=== PATIENT | male | born 1955 | race African-American/Black ===

== ENCOUNTER 2024-11-15 10:30 | Outpatient (AMB) | payer OTHER, SELFPAY ==
--- NOTE | 2024-11-15 10:37 | A.OFFVIS_ITS ---
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 On 1 hand he was doing okay and was working on the form but on the other hand he was getting more forgetful and confused. Sometime he was aggressive. He could lose things easily. While driving, he felt okay. His was concerned that he might not be able to pass citizenship exam. [facility] Medical History (Updated 11/15/24 @ 10:49 by Carmen Powell MD) Alzheimer disease Review of Systems Const Details: Forgetful, sometimes confused and aggressive. Lately ok. Physical Exam Neuro Other: Mental Status: Alert and oriented to person, place, and time. Normal attention. Normal spontaneous speech, fluency, and comprehension. Cranial Nerves: CN II: Visual patel full to confrontation, visual acuity intact. CN III, IV, : Pupils equal, round, reactive to light and accommodation. Extraocular movements are normal. CN V: Facial sensation is normal. CN VII: Facial movements symmetrical. CN VIII: Hearing intact to bedside conversation is normal. CN IX, X: Palate elevates symmetrically. CN XI: Shoulder shrug and head turn symmetrical. CN XII: Tongue midline without atrophy or fasciculations. Extrapyramidal: Full facial expressions and blinking. No rigidity. Movements are appropriate with no tremor or abnormality. Speech: Normal; no dysarthria or tremor. Assessment & Plan Assessment & Plan (1) Alzheimer dementia: Comment: MRI brain WO at [facility] in October 2023: Mild MVD, minimal atrophy. Code(s): G30.9 - Alzheimer's disease, unspecified; F02.80 - Dementia in other diseases classified elsewhere, unspecified severity, without behavioral disturbance, psychotic disturbance, mood disturbance, and anxiety Category: Medical Qualifiers: Alzheimer's disease onset: late onset Dementia severity: mild Dementia behavioral or psychological symptom: with other behavioral disturbance Qualified Code(s): G30.1 - Alzheimer's disease with late onset; F02.A18 - Dementia in other diseases classified elsewhere, mild, with other behavioral disturbance Plan Impression: Mild to moderate Alzheimer dementia with behaioral symptoms Rec: a: Continue to work at farm. This kind of work can help. b: Donepezil 10mg a day c: Sertraline 25mg one a day d: Quetiapine 25mg one a day as needed for aggression e: Memantine 5mg bid Medications: New donepezil 10 mg PO BEDTIME 90 tabs 0RF sertraline 25 mg PO DAILY 90 tabs 0RF quetiapine 25 mg PO BEDTIME PRN 90 tabs 0RF withdrawal symptoms memantine (Namenda) 5 mg PO BID 180 tabs 0RF donepezil 10 mg PO BEDTIME 90 tabs 0RF memantine (Namenda) 5 mg PO BID 180 tabs 0RF quetiapine 25 mg PO BEDTIME PRN 90 tabs 0RF withdrawal symptoms sertraline 25 mg PO DAILY 90 tabs 0RF Coding Level of Care Code Est Pt Level 4 (38740) Diagnoses Mild late onset Alzheimer's dementia with other behavioral disturbance G30.1; F02.A18 Alzheimer's disease onset: late onset Dementia severity: mild Dementia behavioral or psychological symptom: with other behavioral disturbance
--- OUTSIDE RECORDS SUMMARY | 2024-11-15 11:12 | XMS_ITS | Encounter Summary ---
Author Organization [employer] Address [address] [place] [address] Care Team Providers Care Broach Setter Name Role Phone Ignacio Santos Primary Care Provider [phone] Joey Swanson Unavailable [phone] Encounter Details Date Type Department Care Team ([facility] st Contact Info) Description 10/11/[address] [place] [phone] Ignacio Santso PA [address] [place] [id number] Social History Tobacco Use Types Packs/Day Years Used Date Smoking Tobacco: Never Smokeless Tobacco: Never Alcohol Answer Date Recorded How often do you have a drink containing alcohol ? 0 05/24/2023 How many drinks containing a lcohol do you have on a typical day when you are drinking? 0 05/24/2023 How often do you have six or more drinks on one occasion? 0 05/24/2023 Depression Answer Date Recorded Patient Health Questionnaire-9 Score 2 03/18/2023 Patient Health Questionnaire-9 Score 2 03/18/2023 Last PHQ-9: Questionnaire Data Not on file 1 05/19/2022 Housing Stability Answer Date Recorded What is your housing situation today? I have analy stein 03/18/[address] you li ve. Do you have problems with any of the following? None of the above 03/18/2023 Food Insecurity Answer Date Recorded Within the past 12 months, y ou worried that your food would run out before you got money to buy more: Never True 03/18/2023 Within the past 12 months,th e food you bought just didn't last and you didn't have enough money to get more: Never True 10/2022 Transportation Answer Date Recorded In the past 12 months, has l ack of transportation kept you from medical appts, meetings, work or from getting things needed for daily living? No 03/18/2023 Intimate Partner Violence Answer Date R ecorded Within the last year, have y ou been afraid of your partner or ex-partner? 2 05/24/2023 Within the last year, have y ou been humiliated or emotionally abused in other ways by your partner or ex-partner? 2 Within the last year, have y ou been kicked, hit, slapped, or otherwise physically hurt by your partner or ex-partner? 2 05/24/2023 Within the last year, have y ou been raped or forced to have any kind of sexual activity by your partner or ex-partner? 2 05/24/2023 Utilities Answer Date Recorded In the past 12 months, has t he [employer], gas, oil or water company threatened to shut off services in your home? No 03/18/2023 Depression Answer Date Recorded Patient Health Questionnaire-2 Score 0 03/18/2023 Sex and Gender Information Value Date Recorded Sex Assigned at Male 04/10/2022 2:45 PM EST Legal Sex Male 8:38 PM EST Gender Identity Choose not to disclose 2:45 PM EST Sexual Orientation Straight 04/10/2022 2: 45 PM EST documented as of this encounter Miscellaneous Notes * Telephone Encounter - Ashley Maciel - 10/20/2023 2:39 PM EDT Spoke to Roixe at [employer], let her know that [employer] is having an issues and wasn't able to pull an with for this patient and had advised I call the health insurance directly. [employer] is doing the Authorization and that is still pending. Gave them the Case number and said as soon as I get if it was approved or not I will let them know. * Telephone Encounter - Tricia Stephenson - 10/20/2023 1:59 PM EDT EXT [id number] [employer] is the company that this should be submitted to on behalf of the insurance companyfor the prior auth. Their site shows nothing so he just wanted to be certain it has been submitted.their phone # [phone] This is in regards to the brain mri prior authorization request * Telephone Encounter - Ashley Maciel - 10/19/2023 1:57 PM EDT Auth Submitted to [employer] to [phone] Case#[id number] Valid 10/19/23-11/16/24 Auth Pending * Telephone Encounter - Mali Long - 10/15/2023 2:01 PM EDT Shai from [facility] states they Need a Prior auth for the Brain MRI. Shai States they have reached out to the care team a few times and if they dont hear back, they will have to cancel the MRI. * Telephone Encounter - Kimberly Pascual - 10/13/2023 1:00 PM EDT Provider informs the patient needs the order for a brain MRI without contrast. Their NPI is [id number] and their fax is [phone]. They said they had received the order we sent before but the patient's insurance has updated so they will need us to resend it Saying patient needs prior auth * Telephone Encounter - Seymour Hwang - 10/11/2023 12:09 PM EDT Provider informs the patient needs the order for a brain MRI without contrast. Their NPI is [id number] and their fax is [phone]. They said they had received the order we sent before but the patient's insurance has updated so they will need us to resend it documented in this encounter Plan of Treatment Not on file documented as of this encounter Visit Diagnoses Not on filedocumented in this encounter Additional Health Concerns Assessment Noted Time PHQ-9 Depression Total Score: 2 03/18/20 23 2:52 PM EST documented as of this encounter Care Teams Broach Setter Relationship Specialty Start Date End Date Ignacio Santos PA [address] [place] [id number] PCP - General Family Medicine 04/10/22 Joey Swanson LLD [address] [place] [phone] Dentist Dentist 04/10/22 documented as of this encounter
== END 2024-11-15 10:57 | disposition home or self-care (01) ==
LOC: HO.HSM 10:31
PROVIDERS: PCP Physician Assistant Medical; Referring Provider Physician Assistant Medical; Visit Provider Psychiatry & Neurology Neurology
DX: G30.1 Alzheimer's disease with late onset (principal); F02.A18 Dementia in other diseases classified elsewhere, mild, with other behavioral disturbance
CPT/HCPCS: 99214

== ENCOUNTER 2025-02-20 12:40 | Outpatient (AMB) | payer OTHER, SELFPAY ==
--- NOTE | 2025-02-20 12:45 | MHC.OFFVIS ---
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 He is presenting with cognitive decline management related to Alzheimer's Disease. Over recent times, a notable increase in stubbornness and memory-related issues has been observed, complicating daily routines and tasks. Caregiver reports indicate recurring problems with following routines and misplacing objects, such as keys, impacting the patient's compliance and independence. Current treatment involves memantine 5 mg administered twice daily, but due to persistent cognitive and behavioral symptoms, an evaluation and necessary adjustment of the treatment plan are warranted. The patient, although sometimes compliant with organizational strategies, often resists following set routines fully, illustrating the need for further intervention. There are no mentioned adverse reactions to the current medication regimen, enabling safe adjustments advised during the consultation. Additionally, despite the cognitive impediments, the patient remains engaged in work-related activities, underlining the significance of preserving cognitive function and closely monitoring treatment efficacy. [facility] Medical History (Updated 11/15/24 @ 10:49 by Carmen Powell MD) Alzheimer disease Review of Systems Narrative - Neurological: Reports increasing stubbornness and issues with memory and organization, such as misplacing items. - Cognitive: Reports decline in cognitive function, but continues to manage work responsibilities. Physical Exam Neuro Other: Mental Status: Alert and oriented to person, place, and time. Normal attention. Normal spontaneous speech, fluency, and comprehension. Cranial Nerves: CN II: Visual patel full to confrontation, visual acuity intact. CN III, IV, : Pupils equal, round, reactive to light and accommodation. Extraocular movements are normal. CN V: Facial sensation is normal. CN VII: Facial movements symmetrical. CN VIII: Hearing intact to bedside conversation is normal. CN IX, X: Palate elevates symmetrically. CN XI: Shoulder shrug and head turn symmetrical. CN XII: Tongue midline without atrophy or fasciculations. Extrapyramidal: Full facial expressions and blinking. No rigidity. Movements are appropriate with no tremor or abnormality. Speech: Normal; no dysarthria or tremor. Assessment & Plan Assessment & Plan (1) Alzheimer dementia: Comment: MRI brain WO at [facility] in October 2023: Mild MVD, minimal atrophy. Code(s): G30.9 - Alzheimer's disease, unspecified; F02.80 - Dementia in other diseases classified elsewhere, unspecified severity, without behavioral disturbance, psychotic disturbance, mood disturbance, and anxiety Category: Medical Qualifiers: Alzheimer's disease onset: late onset Dementia severity: mild Dementia behavioral or psychological symptom: with other behavioral disturbance Qualified Code(s): G30.1 - Alzheimer's disease with late onset; F02.A18 - Dementia in other diseases classified elsewhere, mild, with other behavioral disturbance Plan Impression: Mild to moderate Alzheimer type dementia with behavioral symptoms Rec: a: Donepezil 10mg one a day b: Memantine 10mg bid c: Sertraline 25mg one in am d: Quetiapine 25mg one at bedtime Medications: New memantine (Namenda) 10 mg PO BID 180 tabs 1RF Refilled donepezil 10 mg PO BEDTIME 90 tabs 1RF quetiapine 25 mg PO BEDTIME PRN 90 tabs 1RF withdrawal symptoms sertraline 25 mg PO DAILY 90 tabs 1RF Discontinued memantine (Namenda) Discontinued Reason: Doctor's Order 5 mg PO BID 180 tabs 0RF Coding Level of Care Code Est Pt Level 4 (84081) Global (56417) Diagnoses Mild late onset Alzheimer's dementia with other behavioral disturbance G30.1; F02.A18 Alzheimer's disease onset: late onset Dementia severity: mild Dementia behavioral or psychological symptom: with other behavioral disturbance Time Spent (min) 45 Comment Additional time spent in counseling and his work-related paperwork
--- OUTSIDE RECORDS SUMMARY | 2025-02-20 14:27 | XMS_ITS | Encounter Summary ---
Author Organization [employer] Address [address] [facility] [address] [place] [address] Care Team Providers Care Traffic Supervisor Name Role Phone Ignacio Santos Primary Care Provider [phone] Joey Swanson DMD Unavailable Unavailable Encounter Details Date Type Department Care Team ([facility] st Contact Info) Description 06/29/[address] [phone] Ignacio Santos PA [address] [place], [place] [phone] Social History Tobacco Use Types Packs/Day Years [...] the past 12 months, has t he electric, gas, oil or water company threatened to [...] encounter Miscellaneous Notes * Telephone Encounter - Tricia Stephenson - 06/29/2023 9:20 AM EDT Please call with lab results. You may call Meseret's # as he is having telephone issues. She is on the meenakshi. Please call documented in this encounter Plan of Treatment Upcoming Encounters Date Type Department Care Team (Late st Contact Info) Description 05/03/2025 8:00 AM EST Office Visit [address] [phone] Ignacio Santos PA [address] [place] [phone] documented as of this encounter Visit Diagnoses Not on filedocumented in this encounter Additional Health Concerns Assessment Noted Time PHQ-9 Depression Total Score: 2 03/18/20 23 2:52 PM EST documented as of this encounter Care Teams Traffic Supervisor Relationship Specialty Start Date End Date Ignacio Santos PA [address] [place] [address] PCP - General Family Medicine 04/10/22 Joey Swanson DMD [address] [place] [address] Dentist Dentist 04/10/22 documented as of this encounter
--- OUTSIDE RECORDS SUMMARY | 2025-02-20 14:27 | XMS_ITS | Clinical Summary ---
Author Organization [employer] Address [address] [facility] 7t [place] [address] Care Team Providers Care Glass Cleaning Machine Tender Name Role Phone Ignacio Santos Primary Care Provider [phone] Joey Swanson DMD Unavailable Unavailable Allergies No known active allergies Medications fluticasone (Flonase) 50 MCG/ACT nasal spray Fluticasone Propionate 50 MCG/ACT Nasal Suspension QTY: 3 each Days: 90 Refills: 0 Written: 07/29/21 Patient Instructions: 1 spray each nostril twice/day. Then go to once/day when symptoms controlled. Stop using when better. 07/30/19 22 Active ibuprofen 600 MG tablet daily. 10/21/19 22 Active Diclofenac Sodium 1 % gelIndication s:Type 2 diabetes mellitus without complication, without long-term current use of insulin (HCC) Diclofenac Sodium 1% External Gel QTY: 100 gram Days: 30 Refills: 0 Written: 02/06/22 Patient Instructions: as directed Apply up to 4g to affected area up to 4 times daily. 50 g 1 03/18/20 23 Active Additional Information Patient not taking.Reported on 01/30/2025 donepezil (Aricept) 10 MG tablet Take 10 mg by mouth at bedtime. 06/21/19 25 Active metFORMIN (Glucophage) 500 MG tabletIndicat ions:Type 2 diabetes mellitus without complication, without long-term current use of insulin (HCC) Take 1 tablet (500 mg) by mouth with breakfast and with evening meal. 180 tablet 3 10/20/19 25 026 Active atorvastatin (Lipitor) 40 MG tabletIndicat ions:Type 2 diabetes mellitus without complication, without long-term current use of insulin (HCC) Take 1 tablet (40 mg) by mouth in the morning. 90 tablet 3 10/20/19 25 026 Active sertraline (Zoloft) 50 MG tablet Take 1 tablet (50 mg) by mouth Once per day. 90 tablet 3 01/31/20 25 026 Active sertraline (Zoloft) 50 MG tablet Take 1 tablet (50 mg) by mouth Once per day. 30 tablet 2 10/18/19 25 025 Discontinued(Re order (will not trigger notification to Pharmacy)) Active Problems Problem Noted Date Diagnosed Date Alzheimer's dementia with mood disturbance (CMS/ HCC) 01/30/2025 Mild cognitive impairment 06/24/2023 Assessment & Plan (07/06/2023 10:26 AM EDT): 67M w/ MCI (MoCA of 22). Labs wnl. MRI ordered to eval for intracranial pathology and specialist referral placed to neurology. Pt expressed understanding and agreement to plan. Assessment & Plan (06/24/2023 10:43 AM EDT): MoCA of 22 performed by RN on 05/26/23 due to reported hx consistent with mild cognitive impairment. Obtain broad diagnostic lab w/u today to screen for organic etiology. Depression screen negative. F/u with lab results - if unrevealing then order MRI and refer to neuro. Primary hypertension 05/24/2023 Assessment & Plan (06/26/2024 12:05 PM EDT): Untreated HTN. BP at goal <140/80. Advised home monitoring. Assessment & Plan (06/24/2023 10:41 AM EDT): Untreated though BP at goal <130/80. Continue to monitor. Assessment & Plan (05/24/2023 1:28 PM EST): Making diagnosis of hypertension given BP greater than 130/80 on multiple occasions spread out over a year. Advised initiation of BP med today but patient declining. Will revisit and discuss further in the future. Primary localized osteoarthrosis of shoulder reg ion 02/06/2022 Overview (03/18/2022): 10/20/21 xray showing minimal degenerative spurring along inferomedial humeral head. Assessment & Plan (03/18/2022 8:52 PM EST): Stable with HEP and voltaren gel prn. Declining formal PT. Continue to monitor. Arthralgia of shoulder 10/21/2021 Assessment & Plan (03/18/2023 11:53 AM EST): Most likely RTC tendinopathy or biceps tendinitis. Osteoarthritis also possible. Physical exam significant for decreased ROM and positive Neer impingement and Mauro indicated some level of subacromial impingement syndrome. Low suspicion for fracture or dislocation. Discussed possible etiologies with patient. - Will obtain right shoulder x-rays - Will refer to physical therapy for further evaluation and management - Provided educational handout for at home exercises to complete - Continue to use Diclofenac gel and NSAIDs prn for symptomatic relief - RTC in 4-6 weeks if sxs persist and will consider referral to orthopedics Ankle pain 10/08/2021 Allergic rhinitis 07/29/2021 Type 2 diabetes mellitus 06/22/2016 Assessment & Plan (06/26/2024 12:05 PM EDT): Stable DMII. Overdue for labs. Obtain today. Continue metformin 500mg BID. F/u if A1c >7% for any med adjustments. Return in 3 months for repeat f/u and labs again. Assessment & Plan (07/06/2023 10:25 AM EDT): Stable. A1c remains at goal <7%. Repeat labs again before next f/u visit for continued monitoring/ management. Assessment & Plan (05/24/2023 1:28 PM EST): Seemingly stable based on reassuring clinical appearance though no actual data to review. Obtain repeat monitoring labs [id number] with results and return in 2 months for continued monitoring/management. In interim continue metformin 500 mg twice daily, and start atorvastatin 40 mg. Assessment & Plan (03/18/2023 11:57 AM EST): Pt needed refill on Metformin 500mg bid. - Will have pt schedule a visit for f/u lab work and have pt come in to review together at that time. Will also ensure pt up to date on other routine recommended screenings. Assessment & Plan (03/18/2022 8:56 PM EST): Well controlled A1c at goal <7%. Continue metformin 500mg bid. Pt will return for CPE in 3 months and have labs done 1 wk before for review together at that time. Will also ensure pt up to date on other routine recommended screenings. Peyronie's disease 03/13/2016 Overview (03/16/2022): Note: Unchanged Other specified congenital anomalies of skin Overview (03/16/2022): Note: Unchanged Encounters Date Type Department Care Team Description 02/01/2025 Results Follow-Up [address] [address] Ignacio Santos PA Albumin, Random Urine W/Creatinine 01/30/2025 8:20 AM EDT Office Visit [address] [address] Ignacio Santos PA Alzheimer's dementia with mood disturbance, unspecified dementia severity, unspecified timing of dementia onset (CMS/HCC) (HCC) (Primary Dx); Primary localized osteoarthrosis of right shoulder region 01/30/2025 Orders Only [address] [address] Ignacio Santos PA 12/28/[address] [address] Ignacio Santos PA 12/28/[address] [address] Ignacio Santos PA 12/18/[address] [address] Ignacio Santos PA Colon Cancer Screening from Last 3 Months Immunizations Immunization Administration Dates Next Due DTP 07/21/2018,05/11/2018 Hep B, adult 06/20/2018,05/11/2018 Influenza High-dose Quadriva lent Preservative Free 03/18/2023 Influenza injectable quadriv alent IIV4 with preservative 05/06/2018,04/20/2017,03/13/2016 Influenza, High Dose Seasona l, Preservative Free 06/26/2024,02/06/2022,05/18/2019 Influenza, IIV3, injectable 01/11/2013 MMR 06/20/2018,05/11/2018 OPV, Trivalent 07/21/2018,05/11/2018 Pneumococcal Conjugate PCV 13 05/18/2019 Pneumococcal Conjugate PCV 20 06/26/2024 TD (adult), 2 Lf tetanus tox oid, preservative free, adsorbed 12/09/2012 Social History Tobacco Use Types Packs/Day Years Used Date Smoking Tobacco: Never Smokeless Tobacco: Never Tobacco Cessation:Counseling Given: Yes Alcohol Answer Date Recorded How often do [...] housing situation today? I have analy stein 06/26/[address] you li ve. Do you have problems with any of the following? None of the above 06/26/2024 Food Insecurity Answer Date Recorded Within the past 12 months, y ou worried that your food would run out before you got money to buy more: Never True 06/26/2024 Within the past 12 months,th e food you bought just didn't last and you didn't have enough money to get more: Never True Transportation Answer Date Recorded In the past 12 months, has l ack of transportation kept you from medical appts, meetings, work or from getting things needed for daily living? No 06/26/2024 Intimate Partner Violence Answer Date R ecorded [...] the past 12 months, has t he [employer], gas, oil or water company threatened to shut off services in your home? No 06/26/2024 Depression Answer Date Recorded Patient Health Questionnaire-2 Score 1 06/26/2024 Internet Access Answer Date Recorded Internet Access Q1 Yes 06/26/2024 Internet Access Q2 Not on file 06/26/2024 Sex and Gender Information Value Date Recorded Sex Assigned at Male 04/10/2022 2:45 PM EST Legal Sex Male 8:38 PM EST Gender Identity Choose not to disclose 2:45 PM EST Sexual Orientation Straight 04/10/2022 2: 45 PM EST Last Filed Vital Signs Vital Sign Reading Time Taken Comments Blood Pressure 152/91 01/30/2025 8:37 AM EDT Pulse 60 01/30/2025 8:25 AM EDT Temperature 36.1 C (97 F) 06/26/2024 11:05 AM EDT Respiratory Rate - - Oxygen Saturation 99% 01/30/2025 8:25 AM EDT Inhaled Oxygen Concentration - - Weight 84.8 kg (187 lb) 01/30/2025 8:25 AM EDT Height 180.3 cm (5' 11 ) 02/06/2022 9:01 AM EDT Body Mass Index 26.08 02/06/2022 9:01 AM EDT Plan of Treatment Upcoming Encounters Date Type Department Care Team (Late st Contact Info) Description 05/03/2025 8:00 AM EST Office Visit [address] [address] Ignacio Santos PA [address] [place] [address] Health Maintenance Due Date Last Done Comments CT Colonography 1953 FIT DNA/Cologuard 1955 FIT 1955 FOBT 1955 Sigmoidoscopy 1955 Diabetes: Foot Exam 11/25/1963 Eye Exam 11/25/1963 Zoster Vaccines (1 of 2) 11/25/2003 Hepatitis B Vaccines (3 of 3 - 19+ 3-dose series) 11/08/2018 06/20/2018, 05/11/2018 IPV Vaccines (3 of 3 - Adult catch-up series) 01/20/2019 07/21/2018, 05/11/2018 Colonoscopy 10/15/2021 10/16/2011 Colorectal Cancer Screening 10/15/2021 COVID-19 Vaccine ( season) 2024 07/11/2020 Influenza Vaccine (#1) 2024 , 03/18/2023, 02/06/2022, Additional history exists Diabetes: Hemoglobin A1C 04/19/2025 025, 05/24/2023, 02/06/2022, Additional history exists Alcohol/Substance Use Screening 06/26/2025 06/26/2024 Depression Screening 06/26/2025 06/26/2024, 03/18/20 23 SDOH Screening 06/26/2025 06/26/2024 Lipid Panel 10/17/2025 10/17/2024, 05/13, 02/06/2022, Additional history exists Diabetes: Urine Protein Screening 01/30/2026 01/30/2025, 05/24/2023, 10/08/2021, Additional history exists Tobacco Screening 01/30/2026 01/30/2025 DTaP/Tdap/Td Vaccines (3 - Tdap) 07/21/2028 07/21/2018, 05/11/2018, 12/09/2012 RSV Patients and Patients Aged 60 years or older (1 - 1-dose 75+ series) 2028 Hepatitis C Screening Completed 05/24/2023 Pneumococcal Vaccine: 50+ Years Completed 06/26/2024, 05/18/2019 HIB Vaccines Aged Out No longer eligi ble based on patient's age to complete this topic HPV Vaccines Aged Out No longer eligi ble based on patient's age to complete this topic Hepatitis A Vaccines Aged Out No long er eligible based on patient's age to complete this topic Meningococcal B Vaccine Aged Out No l onger eligible based on patient's age to complete this topic Meningococcal Vaccine Aged Out No patience taz eligible based on patient's age to complete this topic RSV under 20 months Aged Out No longe r eligible based on patient's age to complete this topic Rotavirus Vaccines Aged Out No longer eligible based on patient's age to complete this topic Procedures Procedure Name Priority Date/Time Associated Diagnosis Comments ALBUMIN, RANDOM URINE W/CREATININE Routine 01/30/2025 1:28 PM EDT HEMOGLOBIN A1C Routine 10/17/2024 1:55 PM EDT Type 2 diabetes mellitus without complication, without long-term current use of insulin (CMS/HCC) LIPID PANEL WITH REFLEX TO DIRECT LDL Routine 10/17/2024 1:55 PM EDT Type 2 diabetes mellitus without complication, without long-term current use of insulin (CMS/HCC) HEPATITIS C AB W/REFL TO HCV RNA, QN, PCR Routine 05/24/2023 1:25 PM EST Encntr screen for infections w sexl mode of transmiss HM COLONOSCOPY Routine 10/16/2011 from Last 3 Months or Most Recently Relevant to Health Maintenance Results * Albumin, Random Urine W/Creatinine (01/30/2025 1:28 PM EDT) Creatinine, Random Urine 135 20 - 320 mg/dL [facility] Albumin, Urine <0.2 See Note: mg/dL [facility] [place] [employer] Comment: Reference Range: Reference Range Not established Albumin/Creatinin e Ratio, Random Urine NOTE <30 mg/g creat [facility] [place] [facility] Comment: NOTE: The urine albumin value is less than 0.2 mg/dL therefore we are unable to calculate excretion and/or creatinine ratio. The ADA defines abnormalities in albumin excretion as follows: Albuminuria Category Result (mg/g creatinine) Normal to Mildly increased <30 Moderately increased 30-299 Severely increased > OR = 300 The ADA recommends that at least two of three specimens collected within a 3-6 month period be abnormal before considering a patient to be within a diagnostic category. 01/30/2025 1:28 PM EDT 02/01/2025 7:36 AM EDT Narrative [facility] - 02/01/2025 7:38 AM EDT FASTING: UNKNOWN us Ignacio ARIAS LAB URINE ORDERABLES Final Resul t [facility] [address], [place] [address] [employer] [place] [employer] [address] [place] [address] * Lipid Panel with Reflex to Direct LDL (10/17/2024 1:55 PM EDT) Cholesterol, Total 134 <200 mg/dL [employer] [place] [employer] HDL Cholesterol 49 > OR = 40 mg/dL [employer] [place] [facility] Triglycerides 116 <150 mg/dL [employer] [place] [employer] LDL Cholesterol 65 mg/dL [facility] [place] [facility] Comment: Reference range: <100 Desirable range <100 mg/dL for primary prevention; <70 mg/dL for patients with CHD or diabetic patients with > or = 2 CHD risk factors. LDL-C is now calculated using the Reed-Vincenzo calculation, which is a validated novel method providing better accuracy than the Friedewald equation in the estimation of LDL-C. Reed SS et al. ANNE. 2013;310(19): 6394-8286 (http://education.[employer]/faq/AJV739) Chol/HDLC Ratio 2.7 <5.0 (calc) [employer] [place] [employer] Non-HDL Cholesterol 85 <130 mg/dL [employer] [place] [employer] Comment: For patients with diabetes plus 1 major ASCVD risk factor, treating to a non-HDL-C goal of <100 mg/dL (LDL-C of <70 mg/dL) is considered a therapeutic option. Blood 10/17/2024 1:55 PM EDT 10/17/2024 1:55 PM EDT Narrative [facility] - 10/18/2024 10:56 AM EDT FASTING:NO FASTING: NO Ignacio ARIAS LAB BLOOD ORDERABLES Final Resul t Performing Organization Address [facility] Co de Phone Number [address], [place] [address] [employer] [place] [employer] [address] [place] [phone] * (ABNORMAL) Hemoglobin A1c (10/17/2024 1:55 PM EDT) [facility] Hemoglobin A1c 6.7(H) <5.7 % [employer] [place] [employer] Comment: For someone without known diabetes, a hemoglobin A1c value of 6.5% or greater indicates that they may have diabetes and this should be confirmed with a follow-up test. For someone with known diabetes, a value <7% indicates that their diabetes is well controlled and a value greater than or equal to 7% indicates suboptimal control. A1c targets should be individualized based on duration of diabetes, age, comorbid conditions, and other considerations. Currently, no consensus exists regarding use of hemoglobin A1c for diagnosis of diabetes for children. Blood Venous blood specimen / Unknown 10/17/2024 1:55 PM EDT 10/17/2024 1:55 PM EDT Narrative [facility] - 10/18/2024 10:56 AM EDT FASTING:NO FASTING: NO Ignacio ARIAS LAB BLOOD ORDERABLES Final Resul t Performing Organization Address [facility] de Phone Number [address] [address] [employer] [place] [employer] [address] [place] [phone] * Hepatitis C Antibody with Reflex to HCV, RNA, Quantitative, Real-Time PCR (05/24/2023 1:25 PM EST) Hepatitis C Antibody NON-REACT TRISTEN NON-REACT TRISTEN [employer] [place] [employer] [facility] Comment: HCV antibody was non-reactive. There is no laboratory evidence of HCV infection. In most cases, no further action is required. However, if recent HCV exposure is suspected, a test for HCV RNA (test code 82106) is suggested. For additional information please refer to http://[employer]/faq/OJL69k9 (This link is being provided for informational/ educational purposes only.) Blood Venous blood specimen / Unknown 05/24/2023 1:25 PM EST 05/24/2023 1:25 PM EST Ignacio ARIAS LAB BLOOD ORDERABLES Final Resul t [facility] [address], [place] [address] [employer] [place] [employer] [address] [place] [address] * Colonoscopy (10/16/2011) Pathologist [facility] Colonoscopy REPEAT IN 10 YEARS Historical Provider MD HEALTH MAINTENANCE Final Result from Last 3 Months or Most Recently Relevant to Health Maintenance Insurance [facility] [place] [id number] Care Teams Glass Cleaning Machine Tender Relationship Specialty Start Date End Date Ignacio Santos PA [address] [place] [address] PCP - General Family Medicine 04/10/22 Joey Swanson DMD [address] [place] [phone] Dentist Dentist 04/10/22
--- OUTSIDE RECORDS SUMMARY | 2025-02-20 14:27 | XMS_ITS | Encounter Summary ---
Author Organization [employer] Address [address] [facility] 7t [place] [address] Care Team Providers Care Dental Surgery Doctor Name Role Phone Ignacio Santos Primary Care Provider [phone] Joey Swanson DMD Unavailable Unavailable Encounter Details Date Type Department Care Team ([facility] st Contact Info) Description 02/01/2025 Results Follow-Up [facility] [address] [place] [address] Ignacio Santos PA [address] [place], [place] [phone] Albumin, Random Urine W/Creatinine Social History Tobacco Use Types Packs/Day Years [...] the past 12 months, has t he [employer], gas, oil or water company threatened to [...] EST Gender Identity Choose not to disclose 2 2:45 PM EST Sexual Orientation Straight 04/10/2022 2: 45 PM EST documented as of this encounter Miscellaneous Notes * Telephone Encounter - Stacey Faye - 02/02/2025 1:50 PM EDT Meseret ( spouse called back returning the nursing call , was told they are mailing a letter with theresults, Meseret asked if they could call her back on her phone as the Pt. Will be unavailable to answer his.[phone] documented in this encounter Plan of Treatment Upcoming Encounters Date Type Department Care Team (Late st Contact Info) Description 05/03/2025 8:00 AM EST Office Visit [facility] [address] [place] [address] Ignacio Santos PA [address] [place] [address] documented as of this encounter Visit Diagnoses Not on filedocumented in this encounter Additional Health Concerns Assessment Noted Time PHQ-9 Depression Total Score: 2 03/18/20 23 2:52 PM EST documented as of this encounter Care Teams Dental Surgery Doctor Relationship Specialty Start Date End Date Ignacio Santos PA [address] [place] [address] PCP - General Family Medicine 04/10/22 Joey Swanson DMD [address] [place] [phone] Dentist Dentist 04/10/22 documented as of this encounter
--- OUTSIDE RECORDS SUMMARY | 2025-02-20 14:27 | XMS_ITS | Encounter Summary ---
Author Organization [employer] Address [address] [place] [address] Care Team Providers Care Stator Tester Name Role Phone Ignacio Santos Primary Care Provider [phone] Joey Swanson DMD Unavailable Unavailable Encounter Details Date Type Department Care Team (Late st Contact Info) Description 09/20/2024 Telephone [facility] [address] [place] [address] Ignacio Santos PA [address] [place] [phone] Social History Tobacco Use Types Packs/Day Years [...] the past 12 months, has t he [employer], gas, oil or water company threatened to [...] encounter Miscellaneous Notes * Telephone Encounter - Latoya Rich - 09/20/2024 12:09 PM EDT Patient's spouse made an appt with Ignacio for October 17 at 12:40. documented in this encounter Plan of Treatment Upcoming Encounters Date Type Department Care Team (Late st Contact Info) Description 05/03/2025 8:00 AM EST Office Visit [address] [address] Ignacio Santos PA [address] [place] [address] documented as of this encounter Visit Diagnoses Not on filedocumented in this encounter Additional Health Concerns Assessment Noted Time PHQ-9 Depression Total Score: 2 03/18/20 23 2:52 PM EST documented as of this encounter Care Teams Stator Tester Relationship Specialty Start Date End Date Ignacio Santos PA [address] [place] [phone] PCP - General Family Medicine 04/10/22 Joey Swanson DMD [address] [place] [phone] Dentist Dentist 04/10/22 documented as of this encounter
== END 2025-02-20 12:55 | disposition home or self-care (01) ==
LOC: HO.HSM 12:41
PROVIDERS: PCP Physician Assistant Medical; Visit Provider Psychiatry & Neurology Neurology
DX: G30.1 Alzheimer's disease with late onset (principal); F02.A18 Dementia in other diseases classified elsewhere, mild, with other behavioral disturbance
CPT/HCPCS: 99214